=== PATIENT | male | born 1935 | race Caucasian/White ===

== ENCOUNTER 2019-08-31 07:45 | Inpatient (IN) | payer BC, OTHER ==
[~2019-08-31] VITALS: Ht 162.6 cm; Wt 78.8 kg
[~2019-08-31 07:45] MED LIST: ALBU2.5V3 NEB; BISA10SU55 RC; BUDE6HFA INHALATION; CARV3.12 PO; CRES20 PO; DICL100G37 TOP; DIGO250T16 PO; DOCU-159 PO; FER325 PO; FURO40TA4 PO; HYDR-4011 PO; LISI-313 PO; LORA-444 PO; MAGN400O19 PO; MELA1TAB9 PO; NA P230E RC; ONDA4TAB14 PO; PANT40TA3 PO; RIVA15TA PO; TIOT18CA INHALATION
[2019-08-31] MEDS ORDERED: NITROGLYCERIN 0.2 MG/HR PATCH TRANSDERM ONE (08:30)
[2019-08-31] MEDS ORDERED: ACETAMINOPHEN 325 MG TAB PO PRN ×2 (09:00→11:00)
[2019-08-31] MEDS ORDERED: ONDANSETRON 4 MG INJ IV PRN ×2 (09:00→11:00)
[2019-08-31] MEDS ORDERED: MAGNESIUM HYDROXIDE 30ML CUP PO PRN (11:00)
[2019-08-31] MEDS ORDERED: MELATONIN PYRIDOXINE HCL PO PRN (11:00)
[2019-08-31] MEDS ORDERED: FUROSEMIDE 20 MG INJ IV ONE (11:00)
[2019-08-31] MEDS ORDERED: ALBUTEROL 0.083% (NEB) 2.5 MG/3 ML AMP NEB PRN (11:00)
[2019-08-31] MEDS ORDERED: BISACODYL 10 MG SUPP PR PRN (11:00)
[2019-08-31] MEDS ORDERED: NON-FORMULARY/PATIENT OWN MED (Na Phos,M-B/Na Phos,Di-Ba (Fleet Enema Extra) 230 ML) RC PRN (11:00)
[2019-08-31] MEDS ORDERED: HYDROCODONE/APAP (5/325) TAB PO PRN (11:00)
[2019-08-31] MEDS: FUROSEMIDE 40 MG INJ IV SCH ×2 (11:43→21:27)
[2019-08-31] MEDS: LISINOPRIL 5 MG TAB PO SCH (11:43)
[2019-08-31] MEDS: LORAZEPAM 1 MG TAB PO PRN (11:43)
[2019-08-31] MEDS: PANTOPRAZOLE (EC) 40 MG TAB PO SCH (11:43)
[2019-08-31 17:10] VITALS: BP 107/59; PULSE 58; RESP 20
[2019-08-31 18:35] VITALS: Ht 162.6 cm; Wt 78.8 kg
[2019-08-31 19:18] VITALS: BP 116/86; PULSE 51; RESP 22
[2019-08-31] MEDS: ARFORMOTEROL TARTRATE 15MCG/2 ML AMP NEB SCH (20:28)
[2019-08-31] MEDS: BUDESONIDE (NEB) 0.25 MG/2 ML AMP HHN SCH (20:28)
[2019-08-31] MEDS ORDERED: FUROSEMIDE 40 MG TAB PO SCH (21:00)
[2019-08-31] MEDS: ATORVASTATIN 80 MG TAB PO SCH (21:28)
[2019-08-31] MEDS: DOCUSATE SODIUM 100 MG CAP PO SCH (21:28)
[2019-08-31] MEDS: FERROUS SULFATE (EC) 325 MG TAB PO SCH (21:28)
[2019-08-31 23:18] VITALS: BP 103/55; PULSE 55; RESP 18
[2019-09-01 04:45] VITALS: BP 104/58; PULSE 68; RESP 21
[2019-09-01] MEDS: PANTOPRAZOLE (EC) 40 MG TAB PO SCH (06:31)
[2019-09-01] MEDS: FUROSEMIDE 40 MG INJ IV SCH (06:32)
[2019-09-01 07:15] VITALS: BP 102/52; PULSE 65; RESP 20
[2019-09-01] MEDS: BUDESONIDE (NEB) 0.25 MG/2 ML AMP HHN SCH ×2 (08:57→19:33)
[2019-09-01] MEDS ORDERED: DIGOXIN 0.25 MG TAB PO SCH (09:00)
[2019-09-01] MEDS: ARFORMOTEROL TARTRATE 15MCG/2 ML AMP NEB SCH ×2 (09:00→20:40)
[2019-09-01] MEDS: FERROUS SULFATE (EC) 325 MG TAB PO SCH ×2 (09:05→20:59)
[2019-09-01] MEDS: ASPIRIN 81 MG TAB PO SCH (09:05)
[2019-09-01] MEDS: LISINOPRIL 5 MG TAB PO SCH (09:06)
[2019-09-01] MEDS: DOCUSATE SODIUM 100 MG CAP PO SCH ×2 (09:06→20:59)
[2019-09-01] MEDS: TIOTROPIUM 18 MCG CAPSULE INHA DEV INH SCH (09:06)
[2019-09-01 11:27] VITALS: BP 92/55; PULSE 59; RESP 20
[2019-09-01] MEDS: DIGOXIN 0.125 MG TAB PO SCH (13:40)
[2019-09-01 14:56] VITALS: BP 99/57; PULSE 64; RESP 20
[2019-09-01] MEDS ORDERED: MELATONIN 3 MG TABLET PO PRN (15:30)
[2019-09-01] MEDS ORDERED: NA PHOSPHATE/BIPHOS 133 ML ENEMA PR PRN (15:30)
[2019-09-01] MEDS: FUROSEMIDE 40 MG TAB PO SCH (17:37)
[2019-09-01 19:16] VITALS: BP 91/50; PULSE 54; RESP 22
[2019-09-01] MEDS: ATORVASTATIN 80 MG TAB PO SCH (20:59)
[2019-09-01] MEDS: LORAZEPAM 1 MG TAB PO PRN (21:05)
[2019-09-02] VITALS (7 sets, daily range): BP systolic 85–111; BP diastolic 50–62; PULSE 44–61; RESP 18–22
[2019-09-02] MEDS: FUROSEMIDE 40 MG TAB PO SCH ×2 (06:22→17:05)
[2019-09-02] MEDS: PANTOPRAZOLE (EC) 40 MG TAB PO SCH (06:22)
[2019-09-02] MEDS: LEVOTHYROXINE 75 MCG TAB PO SCH (06:22)
[2019-09-02] MEDS: BUDESONIDE (NEB) 0.25 MG/2 ML AMP HHN SCH ×2 (07:56→20:42)
[2019-09-02] MEDS: FERROUS SULFATE (EC) 325 MG TAB PO SCH ×2 (08:01→21:40)
[2019-09-02] MEDS: TIOTROPIUM 18 MCG CAPSULE INHA DEV INH SCH (08:01)
[2019-09-02] MEDS: LISINOPRIL 5 MG TAB PO SCH (08:01)
[2019-09-02] MEDS: ASPIRIN 81 MG TAB PO SCH (08:02)
[2019-09-02] MEDS: DOCUSATE SODIUM 100 MG CAP PO SCH ×2 (08:05→21:39)
[2019-09-02] MEDS: ARFORMOTEROL TARTRATE 15MCG/2 ML AMP NEB SCH ×3 (09:15→20:00)
[2019-09-02] MEDS: DIGOXIN 0.125 MG TAB PO SCH (12:17)
[2019-09-02] MEDS: ATORVASTATIN 80 MG TAB PO SCH (21:40)
[2019-09-03 04:18] VITALS: BP 107/51; PULSE 59; RESP 21
[2019-09-03] MEDS: PANTOPRAZOLE (EC) 40 MG TAB PO SCH (05:50)
[2019-09-03] MEDS: FUROSEMIDE 40 MG TAB PO SCH ×2 (05:50→17:38)
[2019-09-03] MEDS: LEVOTHYROXINE 75 MCG TAB PO SCH (05:50)
[2019-09-03 07:12] VITALS: BP 110/57; PULSE 56; RESP 20
[2019-09-03] MEDS: ARFORMOTEROL TARTRATE 15MCG/2 ML AMP NEB SCH ×2 (08:17→20:06)
[2019-09-03] MEDS: BUDESONIDE (NEB) 0.25 MG/2 ML AMP HHN SCH ×2 (08:17→20:06)
[2019-09-03] MEDS: DOCUSATE SODIUM 100 MG CAP PO SCH ×2 (08:22→20:53)
[2019-09-03] MEDS: LISINOPRIL 5 MG TAB PO SCH (08:22)
[2019-09-03] MEDS: FERROUS SULFATE (EC) 325 MG TAB PO SCH ×2 (08:22→20:53)
[2019-09-03] MEDS: ASPIRIN 81 MG TAB PO SCH (08:22)
[2019-09-03] MEDS: TIOTROPIUM 18 MCG CAPSULE INHA DEV INH SCH (09:00)
[2019-09-03 10:50] VITALS: BP 109/56; PULSE 44; RESP 20
[2019-09-03] MEDS: DIGOXIN 0.125 MG TAB PO SCH (13:50)
[2019-09-03 14:55] VITALS: BP 104/54; PULSE 57; RESP 20
[2019-09-03 20:00] VITALS: BP 105/53; PULSE 62; RESP 18
[2019-09-03] MEDS: ATORVASTATIN 80 MG TAB PO SCH (20:53)
[2019-09-03 23:46] VITALS: BP 130/60; PULSE 64; RESP 18
[2019-09-04 04:00] VITALS: BP 113/57; PULSE 72; RESP 18
[2019-09-04] MEDS: LEVOTHYROXINE 75 MCG TAB PO SCH (05:34)
[2019-09-04] MEDS: PANTOPRAZOLE (EC) 40 MG TAB PO SCH (05:34)
[2019-09-04] MEDS: FUROSEMIDE 40 MG TAB PO SCH (05:34)
[2019-09-04 07:16] VITALS: BP 104/57; PULSE 55; RESP 18
[2019-09-04] MEDS: BUDESONIDE (NEB) 0.25 MG/2 ML AMP HHN SCH (08:24)
[2019-09-04] MEDS: ARFORMOTEROL TARTRATE 15MCG/2 ML AMP NEB SCH (08:24)
[2019-09-04] MEDS: TIOTROPIUM 18 MCG CAPSULE INHA DEV INH SCH (08:56)
[2019-09-04] MEDS: FERROUS SULFATE (EC) 325 MG TAB PO SCH (08:57)
[2019-09-04] MEDS: DOCUSATE SODIUM 100 MG CAP PO SCH (08:57)
[2019-09-04] MEDS: LISINOPRIL 5 MG TAB PO SCH (08:57)
[2019-09-04] MEDS: ASPIRIN 81 MG TAB PO SCH (08:57)
[2019-09-04 11:11] VITALS: BP 97/54; PULSE 52; RESP 18
[2019-09-04] MEDS: DIGOXIN 0.125 MG TAB PO SCH (13:09)
== END 2019-09-04 14:45 | DRG 313 ==
LOC: E/R 07:45 → 6WM 09:00 → SUATTDRO 10:34 → 6WM 09-01 10:57 → OBSVTOIN 09-03 15:46
PROVIDERS: ADMIT Family Medicine; ATTEND Family Medicine
DX: R07.9 Chest pain, unspecified (principal); I50.23 Acute on chronic systolic (congestive) heart failure; I48.20 Chronic atrial fibrillation, unspecified; D69.6 Thrombocytopenia, unspecified; E78.5 Hyperlipidemia, unspecified; E03.9 Hypothyroidism, unspecified; I25.5 Ischemic cardiomyopathy; I25.10 Atherosclerotic heart disease of native coronary artery without angina pectoris; I11.0 Hypertensive heart disease with heart failure; I44.7 Left bundle-branch block, unspecified; J44.9 Chronic obstructive pulmonary disease, unspecified; K21.9 Gastro-esophageal reflux disease without esophagitis; Z87.891 Personal history of nicotine dependence; Z95.0 Presence of cardiac pacemaker; Z95.1 Presence of aortocoronary bypass graft; Z95.2 Presence of prosthetic heart valve; Z79.01 Long term (current) use of anticoagulants
CPT/HCPCS: 36415; 71045; 80048; 80061; 80076; 80162; 81001; 82550; 82553; 83036; 83735; 84436; 84443; 84479; 84484; 85025; 87081; 93005; 93306; 94640; 94664; 97110; 97116; 97162; 97530; G0378; J1940